=== PATIENT | female | born 2000 | race African-American/Black ===

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

== ENCOUNTER 2020-04-13 01:43 | Emergency (ER) | payer SELFPAY ==
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
== END 2020-04-13 02:28 | disposition home or self-care (01) ==
LOC: FB.ED 01:43
DX: S01.01XA Laceration without foreign body of scalp, initial encounter (principal); W22.8XXA Striking against or struck by other objects, initial encounter
CPT/HCPCS: 12002; 99282-25